=== PATIENT | female | born 1975 | race Caucasian/White ===

== ENCOUNTER → 2016-09-30 | Outpatient (CLI) | payer OTHER ==
--- NOTE | 2016-09-30 11:43 | MA ---
Bilateral Digital Diagnostic Mammography was Supplementary Views of the Left Breast Clinical History: 41-year-old female with no family history of breast cancer who noticed a painful niko mp on September 26, 2016 and the physician recruiting assistant attempted to drain it without obtaining any aspira giselle material. The patient has noted bruising and pain, although this is not erythematous. The patient denies any fever. Technique: Digital CC and MLO views of each breast as well as true mediolateral views and spot compre ssion MLO and craniocaudal views of the area of palpable concern in the 12 o'clock position of the le ft breast were obtained. Additionally, the study is CAD checked. Breast Density: Type C. CAD Evaluation: Reviewed. Findings: There is a heterogeneously dense residual fibroglandular pattern. This limits mammographic detection. There are some rare benign-appearing calcifications on the right side. With reference to t he area of palpable concern at the 12 o'clock position of the left breast, there is some heterogeneou sly dense fibroglandular tissue with no architectural distortion. Targeted sonography of this area wa s also performed. Impression: Needs additional imaging evaluation (BI-RADS Category 0, incomplete). Recommendation: Sonography of the area of palpable concern in the left breast, separately performed a nd reported.
--- NOTE | 2016-09-30 12:03 | US ---
Left Breast Sonography Clinical History: 41-year-old female who had a palpable tender left breast lump on September 26, 2016 a nd underwent an in-office aspiration attempt without any fluid acquired. The patient has had indurati on, but no erythema or fever, and has had persistent pain and bruising. Technique: A linear 12 MHz transducer was used to sonographically evaluate the area of palpable aramis rn. Color Doppler was used. Cine clips were acquired. Both the construction project administrator and the sonologist perform ed the exam. Comparison Study: Diagnostic mammography obtained today. Findings: In the 11 to 12 o'clock position of the left breast, 5 cm from the nipple, there is a 2.5 x 1.7 x 1.8 cm complex appearing area, probably representing some hematoma disbursing two mildly comp kristofer and perhaps involuting cysts(which may have been fenestrated during the aspiration attempt). The more dominant of the two complex cysts is seen along the posterior margin of this area measuring 1.5 x 1.1 x 0.6 cm. There is no unusual hyperemia. Diagnostic mammography did not reveal any architectura l distortion or suspicious microcalcifications. At this point, the above findings may represent compl ex cysts associated with an intraparenchymal hematoma. Small abscesses can not be excluded sonographi jacque, although clinically this does not appear to be the case as the patient is not erythematous or febrile. Because this is a palpable lump with complex features, short-term repeat sonography is recom mended. If this cyst should further involute and the presumed hematoma should become smaller, this co uld be followed. If the sonographic features should worsen, ultrasound-guided biopsy may be considere d at that point. I discussed these findings with the patient, who is a medical administrative specialist working with [employer]. I also discussed the findings directly with Mirna Thompson. Impression: Complex area in the 11 to 12 o'clock position of the left breast, as above-detailed. Recommendation: Short-term repeat targeted sonography in 4 weeks.
== END ==
LOC: BRMIMAGING 08:50
PROVIDERS: ATTEND Physician Assistant Medical
DX: N60.02 Solitary cyst of left breast (principal)
CPT/HCPCS: 76641-PO; G0204